=== PATIENT | female | born 1940 | race Caucasian/White ===

== ENCOUNTER → 2016-08-21 | Day surgery (SDC) | payer MEDICARE ==
[~2016-08-21] VITALS: Ht 162.6 cm; Wt 55.9 kg
[~2016-08-21] MED LIST: ACETAMINOPHEN 1000 MG/100 ML VIAL IV SCH; ADVI200C5 PO; AMLO5TAB2 PO; APREPITANT 40 MG CAP ONE; ASPI-110 PO; ATOR20TA15 PO; BUPIVACAINE LIPOSOME PF 1.3% 20 ML VIAL ONE; BUPIVACAINE/EPINEPHRINE 0.25% PF 10 ML VIAL ONE; BUSP15TA PO; CITA40TA4 PO; DICLOFENAC SODIUM 37.5 MG/ML VIAL IV PUSH ONE; FAMOTIDINE 20 MG/2 ML VIAL ONE; INSULIN HUMAN REGULAR 1,000 UNITS/10 ML VIAL SQ PRN; LACTATED RINGER'S 1000 ML INJ 1,000 ML IV ONE; LACTATED RINGER'S 1000 ML IV SCH; LORA2TAB7 PO; LOSA100T PO; METOPROLOL TARTRATE 25 MG TAB PO PRN; MIDAZOLAM HCL 2 MG/2 ML VIAL ONE; MORPHINE SULFATE 4 MG/ML INJ IV PRN; NEOSTIGMINE 3 MG/3 ML SYR IV ONE; ONDANSETRON HCL 4 MG/2 ML VIAL IV PRN; ONDANSETRON HCL 4 MG/2 ML VIAL IV PUSH ONE; OXYC1TAB63 PO; PHENYLEPH/NS 1000 MCG/10 ML SYR IV ONE; PROPOFOL 200 MG/20 ML AMP IV ONE; SODIUM CHLORID 0.9% 500 ML IV SCH; ceFAZolin 2 GM PREMIX 50 ML IV SCH; ePHEDrine/NS 25 MG/5 ML SYR IV ONE; fentaNYL CITRATE 250 MCG/5 ML AMP ONE; oxyCODONE/ACETAMINOPHEN 5 MG/325 MG TAB PO PRN
[2016-08-21 09:01] VITALS: BP 160/73; PULSE 82; RESP 16; TEMP 97.9; O2SAT 96
--- NOTE | 2016-08-21 13:17 | PD.OP ---
cc: Mikey Mckee MD Operative Report Date of Surgery: Aug 21, 2016 Preoperative Diagnosis: (1) Incisional hernia Postoperative Diagnosis: (1) Incisional hernia Procedure: Laparoscopic ventral incisional hernia repair with mesh Anesthesia: ARIEL Surgeon: Mikey Mckee Special Needs Tutor(s): Genoveva mckenzie CFA Operation and Findings: EBL: 10 cc Operative findings: The patient had a 5x4 cm ventral incisional hernia superior to the umbilicus. Procedure in detail: The patient was taken to the operating room and placed supine position. Gen. endotracheal anesthesia was induced. The abdomen was prepped and draped in usual sterile fashion and a surgical timeout was performed to verify correct patient procedure and site. Appropriate perioperative antibiotics were administered. In the left mid abdomen 5 mm incision was made after infiltration with local anesthetic and a 5 mm port placed using the direct Optiview technique. The abdomen was insufflated to 15 mmHg which the patient tolerated well. Another 5 mm port was placed in the left upper abdomen. The fascial defect was seen superior to the umbilicus. It was cleared of surrounding fatty tissue and a portion of the hernia sac was removed. The falciform ligament was partially taken down using the Harmonic scalpel. The fascial defect was proximally 5 x 4 cm in diameter. Next a 5 mm port was placed in the right lower quadrant and one in the right upper quadrant. From the opposite side peritoneum and fatty tissue was also taken down using Harmonic scalpel. The fascial defect was not well delineated. A 6 x 8" Bard ventral light mesh using the echo deployment system was chosen and placed inside the abdomen. The inflation device was inflated and the mesh oriented toward the 8 inch portion is vertical and 6 inch horizontal. There was good overlap around the fascial defects. The edges of the mesh was secured with the pro-tack tacker. The double crown using absorbable tack tacker was used and tacks were also placed in the midportion of the mesh avoiding the hernia sac. The mesh was taut. There was good hemostasis. Trochars were now removed and the abdomen allowed to desufflate. The 12 mm fascial site was closed in 2 layers with 0 Vicryl suture. The skin was closed with subcuticular 4-0 Monocryl suture as well as Dermabond. An abdominal binder was placed. The patient tolerated the procedure well was extubated and taken to PACU in stable condition. Mikey Mckee MD Aug 21, 2016 13:17
[2016-08-21 14:30] VITALS: BP 128/57; PULSE 84; RESP 18; TEMP 97.6; O2SAT 92
== END | disposition home or self-care (01) ==
LOC: HSDC 08:21
PROVIDERS: ATTEND Surgery
DX: K43.2 Incisional hernia without obstruction or gangrene (principal)
CPT/HCPCS: 00752; 49654; C1781; C9290; J0131; J0690; J1130; J2250; J2370; J2405; J2710; J3010; J7120; J8501